=== PATIENT | female | born 1980 | race Two or more races ===

== ENCOUNTER 2020-07-14 00:01 | Emergency (ER) | payer SELFPAY ==
--- NOTE | 2020-07-14 00:34 | EDM.PDOC ---
ED HPI GENERAL MEDICAL PROBLEM - General Time Seen by Provider: 07/14/20 00:04 Source of Information: Reports: Patient - History of Present Illness INITIAL COMMENTS - FREE TEXT/NARRATIVE: Morelia is a 40 y/o female who has had urinary complaints for the last 5-7 days. Been using OTC AZO with some relief, but tonight dysuria was worse. No fever. Denies vaginal bleeding or discharge. Has had one UTI in past. - Related Data Home Meds: Home Meds Nitrofurantoin Monohyd/M-Cryst [Macrobid 100 mg Capsule] 100 mg PO BID #13 capsule 07/14/20 [Rx] Review of Systems - Review of Systems Review Of Systems: See Below Constitutional: Reports: No Symptoms Eyes: Reports: No Symptoms Ears: Reports: No Symptoms Nose: Reports: No Symptoms Mouth/Throat: Reports: No Symptoms Respiratory: Reports: No Symptoms Cardiovascular: Reports: No Symptoms GI/Abdominal: Reports: No Symptoms Genitourinary: Reports: Dysuria, Painful Urination. Denies: Vaginal Bleeding Musculoskeletal: Reports: No Symptoms Skin: Reports: No Symptoms Neurological: Reports: No Symptoms Psychiatric: Reports: No Symptoms ED EXAM, GENERAL - Physical Exam Exam: See Below Exam Limited By: No Limitations (Adult female) General Appearance: Alert, WD/WN, No Apparent Distress Ears: Hearing Grossly Normal Head: Atraumatic, Normocephalic Neck: Supple, Non-Tender Respiratory/Chest: No Respiratory Distress, Lungs Clear, Chest Non-Tender Cardiovascular: Regular Rate, Rhythm GI/Abdominal: Normal Bowel Sounds, Soft, Other (Neg CVAT) (Female) Exam: Deferred Rectal (Female) Exam: Deferred Extremities: Normal Inspection, Normal Range of Motion, Normal Capillary Refill Neurological: Alert, Oriented, CN II-XII Intact, Normal Cognition Psychiatric: Normal Affect, Normal Mood Skin Exam: Warm, Dry, Intact, Normal Color Course - Vital Signs Text/Narrative:: 0004 The patient was seen by the [facility]. UA was done. 0030 UA results reviewed.Will treat patient with Macrobid x 7 days. She was given her 1st dose in the ER. Written instructions were given and she left the ER in stable condition. - Orders/Labs/Meds Orders: Active Orders 24 hr Category Date Time Status CULTURE URINE [RM] Stat Lab 07/14/20 00:06 Received Nitrofurantoin Terry/Macrocryst [Macrobid] Med 07/14/20 00:27 Stat 100 mg PO NOW STA Labs: Laboratory Tests 07/14/20 Range/Units 00:06 Urine Color Yellow (YELLOW) Urine Appearance Cloudy H (CLEAR) Urine pH 5.5 (5.0-8.0) Ur Specific [place] >=1.030 Urine Protein >=300 H (NEGATIVE) mg/dL Urine Glucose (UA) Negative (NEGATIVE) mg/dL Urine Ketones Trace H (NEGATIVE) mg/dL Urine Occult Blood Large H (NEGATIVE) Urine Nitrite Negative (NEGATIVE) Urine Bilirubin Small H (NEGATIVE) Urine Urobilinogen 0.2 (0.2) EU/dL Ur Leukocyte Esterase Trace H (NEGATIVE) Urine RBC >100 H (NOT SEEN) /HPF Urine WBC 5-10 H (NOT SEEN) /HPF Ur Squamous Epith Cells Few H (NOT SEEN) /HPF Urine Bacteria Occasional H (NOT SEEN) /HPF Urine Mucus Few H (NOT SEEN) /LPF Departure - Departure Time of Disposition: 00:29 Disposition: Home, Self-Care 01 Condition: Good Clinical Impression: UTI (urinary tract infection) Qualifiers: Urinary tract infection type: site unspecified Hematuria presence: without hematuria Qualified Code(s): N39.0 - Urinary tract infection, site not specified - Discharge Information *PRESCRIPTION DRUG MONITORING PROGRAM REVIEWED*: Not Applicable *COPY OF PRESCRIPTION DRUG MONITORING REPORT IN PATIENT TRISHA: Not Applicable Prescriptions: Nitrofurantoin Monohyd/M-Cryst [Macrobid 100 mg Capsule] 100 mg PO BID #13 capsule Instructions: Urinary Tract Infection, Adult - My Orders Last 24 Hours: My Active Orders 07/14/20 00:06 CULTURE URINE [RM] Stat 07/14/20 00:27 Nitrofurantoin Terry/Macrocryst [Macrobid] 100 mg PO NOW STA - Assessment/Plan Last 24 Hours: My Active Orders 07/14/20 00:06 CULTURE URINE [RM] Stat 07/14/20 00:27 Nitrofurantoin Terry/Macrocryst [Macrobid] 100 mg PO NOW STA Assessment:: 1)UTI Plan: -Macrodantin 100mg oral twice daily x 7 days #13(Rx) -Continue AZO as needed -Drink plenty of fluids -Rest as needed -Follow up with your PCP or return to the ER if your symptoms are worse or any other concerns
[2020-07-14] MEDS: Nitrofurantoin Monohydrate/Macrocrystalline 100 MG Cap PO STA (00:37)
== END 2020-07-14 00:40 | disposition home or self-care (01) ==
LOC: VM.ED 00:01
DX: N39.0 Urinary tract infection, site not specified (principal)
CPT/HCPCS: 81001; 87086; 99283; A9270-GY